=== PATIENT | male | born 1935 | race Caucasian/White ===

== ENCOUNTER 2020-06-29 07:32 | Day surgery (SDC) | payer MEDICARE, BC ==
[~2020-06-29] VITALS: Ht 185.4 cm; Wt 105.6 kg
[2020-06-29] VITALS (9 sets, daily range): BP systolic 91–121; BP diastolic 56–94
[2020-06-29] MEDS ORDERED: diphenhydrAMINE 25mg capsule PO PRN (07:50)
[2020-06-29] MEDS ORDERED: normal saline 1,000 ML IV SCH (07:50)
[2020-06-29] MEDS ORDERED: VITAMIN E (08:30)
[2020-06-29] MEDS ORDERED: HYDR-3964 (08:30)
[2020-06-29] MEDS ORDERED: APIX5TAB3 PO (08:30)
[2020-06-29] MEDS ORDERED: LISI-604 PO ×2 (08:30→09:02)
[2020-06-29] MEDS ORDERED: CARV-50 PO (08:30)
[2020-06-29] MEDS ORDERED: FURO40TA4 PO (08:30)
[2020-06-29] MEDS ORDERED: PROBIOTIC (08:30)
[2020-06-29] MEDS ORDERED: POTA8CAP20 PO (08:30)
[2020-06-29] MEDS ORDERED: EZET10TA6 PO (08:30)
[2020-06-29] MEDS ORDERED: VITAMIN C (08:30)
[2020-06-29] MEDS ORDERED: PRAV20TA4 PO (08:30)
[2020-06-29 08:34] LABS: BASOPHILS % (AUTO) 0.7 % (0-1); EOSINOPHILS # (AUTO) 0.1 X10'3 (0-0.9); EOSINOPHILS % (AUTO) 1.7 % (0-6); HEMATOCRIT 44.1 % (42.0-52.0); HEMOGLOBIN 14.7 g/dl (14.0-17.9); LYMPHOCYTES # (AUTO) 1.1 X10'3 (1.1-4.8); LYMPHOCYTES % (AUTO) 18.1 % (21-51); MEAN CORPUSCULAR HGB CONC 33.3 g/dL (33.0-36.5); MEAN CORPUSCULAR VOLUME 99.2 FL (78-98); MEAN PLATELET VOLUME 8.8 FL (7.4-10.4); MONOCYTES # (AUTO) 0.6 X10'3 (0-0.9); MONOCYTES % (AUTO) 9.2 % (2-12); NEUTROPHILS # (AUTO) 4.4 X10'3 (1.8-7.7); NEUTROPHILS % (AUTO) 70.3 % (42-75); PLATELET COUNT 175 X10'3 (140-440); RED BLOOD COUNT 4.44 X10'6 (4.70-6.10); RED CELL DISTRIBUTION WIDTH 14.3 % (11.5-14.5); WHITE BLOOD COUNT 6.3 X10'3 (4.5-11.0)
[2020-06-29 08:48] LABS: ALBUMIN 3.7 G/DL (3.4-5.0); BLOOD UREA NITROGEN 24 MG/DL (7-18); BUN/CREATININE RATIO 19.5 (5.4-32.0); CALCIUM 9.1 MG/DL (8.5-10.1); CHLORIDE 104 MMOL/L (99-107); CREATININE 1.23 MG/DL (0.60-1.10); GLUCOSE 120 MG/DL (70-104); MAGNESIUM 1.9 MG/DL (1.5-2.4); POTASSIUM 4.2 MMOL/L (3.5-5.1); TOTAL CARBON DIOXIDE 25.3 MMOL/L (24-32); eGFR 56 ML/MIN
[2020-06-29] MEDS ORDERED: midazolam 2 mg/2 ml injection ONE ×2 (08:56→09:55)
[2020-06-29] MEDS ORDERED: fentaNYL/PF 50MCG/1 ML 2ML syringe ONE (08:56)
[2020-06-29] MEDS ORDERED: LIDOcaine 1% (10mg/ml)w/preservative injection 20ml MDV ONE (08:56)
[2020-06-29] MEDS ORDERED: iohexol 350MG/ML 100ml bottle IV ONE (08:56)
[2020-06-29] MEDS ORDERED: iohexol 350 MG/ML 50ML vial IV ONE (08:56)
[2020-06-29 08:59] LABS: ANION GAP 9 (8-16); SODIUM 138 MMOL/L (135-145)
[2020-06-29] MEDS ORDERED: BISO10TA PO (09:02)
[2020-06-29] MEDS ORDERED: OMEG1CAP PO (09:02)
[2020-06-29] MEDS ORDERED: HYDR-4353 PO (09:02)
[2020-06-29] MEDS ORDERED: PRAV10TA39 PO (09:02)
[2020-06-29] MEDS ORDERED: FURO-150 PO (09:02)
[2020-06-29] MEDS ORDERED: MV-M1TAB19 PO (09:02)
[2020-06-29] MEDS ORDERED: heparin 1,000unit/ml 10ml vial 10 ML ONE (09:48)
[2020-06-29] MEDS ORDERED: HYDROcodone/acetaminophen 10/325mg tab PO PRN (10:45)
[2020-06-29] MEDS ORDERED: proCHLORperazine 10 MG/2 ml inj IV PRN (10:45)
[2020-06-29] MEDS ORDERED: HYDROcodone/acetaminophen 5mg/325mg tablet PO PRN (10:45)
[2020-06-29] MEDS ORDERED: ondansetron/PF 4mg/2ml inj IV PRN (10:45)
[2020-06-29] MEDS ORDERED: normal saline 1000ml 1,000 ML IV SCH (10:45)
--- NOTE | 2020-06-29 10:54 | NUR ---
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
--- NOTE | 2020-06-29 10:59 | NUR ---
Problems reprioritized. Patient report given, questions answered & plan of care reviewed with Cherelle AMEZCUA.
== END 2020-06-29 14:09 | disposition home or self-care (01) ==
LOC: SSTAY O 07:32
PROVIDERS: ATTEND Internal Medicine Cardiovascular Disease
DX: I35.0 Nonrheumatic aortic (valve) stenosis (principal); I25.10 Atherosclerotic heart disease of native coronary artery without angina pectoris; I48.20 Chronic atrial fibrillation, unspecified; E78.5 Hyperlipidemia, unspecified; I42.0 Dilated cardiomyopathy; I11.0 Hypertensive heart disease with heart failure; I50.9 Heart failure, unspecified; M10.9 Gout, unspecified; Z87.19 Personal history of other diseases of the digestive system; Z79.899 Other long term (current) drug therapy; Z96.649 Presence of unspecified artificial hip joint; Z96.659 Presence of unspecified artificial knee joint; Z82.49 Family history of ischemic heart disease and other diseases of the circulatory system
CPT/HCPCS: 36415; 80048; 83735; 85025; 85610; 93005; 93460; 99152; 99153; C1760; C1769; C1894; J1644; J2001; J2250; J3010; J7030; Q0163; Q9967; A4620; A6258; C1751

== ENCOUNTER 2020-08-20 06:13 | Day surgery (SDC) | payer MEDICARE, BC ==
[2020-08-20] VITALS (17 sets, daily range): BP systolic 102–136; BP diastolic 48–81
[~2020-08-20] VITALS: Ht 185.4 cm; Wt 101.8 kg
[~2020-08-20 06:13] MED LIST: APIX5TAB3 PO; BISO10TA PO; CARV-50 PO; EZET10TA6 PO; FURO-150 PO; HYDR-4353 PO; LISI-604 PO; MV-M1TAB19 PO; OMEG1CAP PO; POTA8CAP20 PO; PRAV10TA39 PO; PROBIOTIC; VITAMIN C; VITAMIN E
[2020-08-20] MEDS ORDERED: albuterol 2.5 MG/3 ML nebule NEB ONE (07:10)
[2020-08-20] MEDS ORDERED: OMEG1CAP21 PO (07:30)
[2020-08-20] MEDS ORDERED: DOBUTamine-DoBUTrex 500mg/D5W 250 ML IV ONE (07:35)
[2020-08-20] MEDS ORDERED: normal saline 1000ml 1,000 ML IV SCH (07:35)
[2020-08-20 07:41] LABS: BASOPHILS # (AUTO) 0.1 X10'3 (0-0.2); BASOPHILS % (AUTO) 0.7 % (0-1); EOSINOPHILS # (AUTO) 0.2 X10'3 (0-0.9); EOSINOPHILS % (AUTO) 2.1 % (0-6); HEMOGLOBIN 15.6 g/dl (14.0-17.9); LYMPHOCYTES # (AUTO) 1.7 X10'3 (1.1-4.8); LYMPHOCYTES % (AUTO) 22.3 % (21-51); MEAN CORPUSCULAR HEMOGLOBIN 33.3 PG (27.0-31.0); MEAN CORPUSCULAR HGB CONC 33.9 g/dL (33.0-36.5); MEAN CORPUSCULAR VOLUME 98.4 FL (78-98); MEAN PLATELET VOLUME 8.7 FL (7.4-10.4); MONOCYTES # (AUTO) 0.9 X10'3 (0-0.9); MONOCYTES % (AUTO) 11.6 % (2-12); NEUTROPHILS # (AUTO) 4.9 X10'3 (1.8-7.7); NEUTROPHILS % (AUTO) 63.3 % (42-75); PLATELET COUNT 192 X10'3 (140-440); RED BLOOD COUNT 4.68 X10'6 (4.70-6.10); RED CELL DISTRIBUTION WIDTH 15.5 % (11.5-14.5); WHITE BLOOD COUNT 7.7 X10'3 (4.5-11.0)
[2020-08-20 07:51] LABS: PARTIAL THROMBOPLASTIN TIME 32 SECONDS (22-32)
[2020-08-20 07:52] LABS: ALANINE AMINOTRANSFERASE 24 U/L (12-78); ALBUMIN 4.4 G/DL (3.4-5.0); ALKALINE PHOSPHATASE 94 IU/L (46-116); ANION GAP 10 (8-16); ASPARTATE AMINO TRANSFERASE 23 U/L (10-37); BLOOD UREA NITROGEN 32 MG/DL (7-18); BUN/CREATININE RATIO 20.4 (5.4-32.0); CALCIUM 9.6 MG/DL (8.5-10.1); CHLORIDE 103 MMOL/L (99-107); CREATININE 1.57 MG/DL (0.60-1.10); GLUCOSE 99 MG/DL (70-104); POTASSIUM 4.8 MMOL/L (3.5-5.1); SODIUM 141 MMOL/L (135-145); TOTAL CARBON DIOXIDE 27.8 MMOL/L (24-32); TOTAL PROTEIN 8.6 G/DL (6.4-8.2); eGFR 42 ML/MIN
[2020-08-20] MEDS ORDERED: OMEG1CAP PO (08:45)
[2020-08-20] MEDS ORDERED: BISO10TA PO (08:45)
[2020-08-20] MEDS ORDERED: CHOL10006 PO (08:45)
[2020-08-20] MEDS ORDERED: iohexol 350 MG/ML 50ML vial IV ONE (10:42)
[2020-08-20] MEDS ORDERED: iohexol 350MG/ML 100ml bottle IV ONE (10:42)
[2020-08-20 10:54] LABS: CLARITY,URINE CLEAR (Clear); COLOR,URINE YELLOW (Yellow); GLUCOSE, URINE NEGATIVE (Neg); KETONES,URINE NEGATIVE (Neg); LEUKOCYTE ESTERASE ,URINE NEGATIVE (Neg); NITRITES, URINE NEGATIVE (Neg); OCCULT BLOOD,URINE NEGATIVE (Neg); PROTEIN,URINE NEGATIVE (Neg); UROBILINOGEN,URINE 0.2 E.U/dL (0.2-1.0)
[2020-08-20 10:55] LABS: UA COLLECTION TYPE NON-SPECIFIED
[2020-08-20 11:11] LABS: ABG BASE EXCESS -4.1 mmol/L (-2.0-2.0); ABG HCO3 18.7 mmol/L (22.0-26.0); ABG OXYGEN SATURATION 96.8 % (94-97); ABG PCO2 (T) 28.7 mmHg (35.0-48.0); ABG PO2 (T) 90.7 mmHg (75.0-100.0); ALLEN'S TEST POSITIVE; FCOHb 0.7 % (0.0-3.9); FMetHb 0.1 % (0.0-1.5); TOTAL HEMOGLOBIN 14.7 G/dl (14.0-18.0)
[2020-08-20] MEDS ORDERED: metoprolol tartrate 1mg/ml inj IV ONE ×2 (12:14→12:15)
--- NOTE | 2020-08-20 14:32 | NUR ---
Hilton and his son Abdelrahman are here today for consult with Dr. Worthy and Dr. Munson. He was in [facility] earlier today and had DSE done with positive results. Patient then had the rest of his work up completed prior to coming to the [facility]. 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 The only way the patient can stand or walk is with the assistance of a 4 wheeled walker, which is not available since they did not bring it with them. Patient completed the KCCQ12 questionnaire and reviewed the medication list. Patient reviewed education and questions were answered.
[2020-09-03] MEDS ORDERED: LACT1CAP65 PO (09:30)
== END 2020-08-20 13:00 | disposition home or self-care (01) ==
LOC: SSTAY O 06:13
PROVIDERS: ATTEND Internal Medicine Cardiovascular Disease
DX: I35.0 Nonrheumatic aortic (valve) stenosis (principal); R06.02 Shortness of breath; I65.23 Occlusion and stenosis of bilateral carotid arteries; I25.10 Atherosclerotic heart disease of native coronary artery without angina pectoris; I70.0 Atherosclerosis of aorta; K80.20 Calculus of gallbladder without cholecystitis without obstruction; K44.9 Diaphragmatic hernia without obstruction or gangrene; N28.1 Cyst of kidney, acquired; I42.8 Other cardiomyopathies; I48.20 Chronic atrial fibrillation, unspecified; I11.0 Hypertensive heart disease with heart failure; I50.9 Heart failure, unspecified; E78.00 Pure hypercholesterolemia, unspecified; M10.9 Gout, unspecified; M19.90 Unspecified osteoarthritis, unspecified site; Z79.01 Long term (current) use of anticoagulants; Z96.651 Presence of right artificial knee joint; Z96.641 Presence of right artificial hip joint; Z79.899 Other long term (current) drug therapy
CPT/HCPCS: 36415; 36600; 71045; 71275; 74174; 80053; 81003; 82803; 85018; 85025; 85610; 85730; 87635; 93005; 93350; 93880; J1250; J7030; Q9967; J3490